=== PATIENT | female | born 1945 | race Caucasian/White ===

== ENCOUNTER → 2018-08-12 | Outpatient (CLI) | payer OTHER ==
[~2018-08-12] MED LIST: BENTYL10 MG PO; LEVOTHYROXINE0.05 MG PO; LISINOPRIL40 MG PO; LOVASTAT40; TOPROL XL50 MG PO
== END ==
LOC: M.RAD 08-08 15:05
DX: Z12.31 Encounter for screening mammogram for malignant neoplasm of breast (principal); M85.89 Other specified disorders of bone density and structure, multiple sites; Z78.0 Asymptomatic menopausal state

== ENCOUNTER → 2020-10-07 | Outpatient (CLI) | payer OTHER | LOC: M.RAD 09-21 13:24 | PROVIDERS: ATTEND Family Medicine | DX: Z12.31 Encounter for screening mammogram for malignant neoplasm of breast (principal); N95.1 Menopausal and female climacteric states; M85.88 Other specified disorders of bone density and structure, other site ==